=== PATIENT | male | born 1980 | race Caucasian/White ===

== ENCOUNTER 2017-03-27 19:49 | Emergency (ER) | payer BC ==
[2017-03-27 19:54] VITALS: RESP 18
[2017-03-27] MEDS ORDERED: METOCLOPRAMIDE 5 MG/ML 2 ML VIAL IVP STA (20:56)
[2017-03-27] MEDS ORDERED: PANTOPRAZOLE 40 MG/10 ML VIAL IVP STA (20:56)
[2017-03-27] MEDS ORDERED: HYDROmorphone 1 MG/ML 1 ML SYRINGE IVP STA ×2 (20:56→22:28)
[2017-03-27] MEDS ORDERED: SODIUM CHLORIDE 0.9% 1,000 ML IV STA ×2 (20:56)
--- NOTE | 2017-03-27 21:08 | ED ---
General Adult HPI - General Source: patient, family, RN notes reviewed Mode of arrival: ambulatory Limitations: no limitations <Rafiq Fonseca - Last Filed: 03/27/17 22:41> <Jean Menchaca - Last Filed: 03/28/17 01:42> - General Chief complaint: Abdominal Pain Stated complaint: Abd Pain Time Seen by Provider: 03/27/17 20:47 - History of Present Illness Initial comments: If complaint and history of present illness a 37-year-old male who reports he awakened around 3:30 with epigastric area pain. Dry heaves mild diaphoresis. Patient 20 difficult to find a position of comfort. He does report having had kidney stones in the past. As nothing ate any bad food. No one is also sick like this. (Rafiq Fonseca) - Related Data Home Medications Medication Instructions Recorded Confirmed Cyclobenzaprine [Flexeril] 5 - 10 mg PO Q6H PRN 03/27/17 03/27/17 HYDROcodone/APAP 10-325MG [[place] 1 tab PO TID PRN 03/27/17 03/27/17 10-325] Previous Rx's Medication Instructions Recorded Famotidine [Pepcid] 20 mg PO BID #14 tablet 03/28/17 Allergies Allergy/AdvReac Type Severity Reaction Status Date / Time No Known Allergies Allergy Verified 03/27/17 21:11 Review of Systems ROS Other: All systems not noted in ROS Statement are negative. <Rafiq Fonseca - Last Filed: 03/27/17 22:41> ROS Other: All systems not noted in ROS Statement are negative. <Jean Menchaca - Last Filed: 03/28/17 01:42> ROS Statement: Those systems with pertinent positive or pertinent negative responses have been documented in the HPI. Review of systems no headache or visual acuity changes no shortness of breath no chest pain. He points to the epigastric area as area discomfort and pain in the back sometimes left flank area. He's been taking pain medication at home without resolution. He had dry heaves for several hours. No neuro deficits. All systems are reviewed. Past medical processing significant for asthma, kidney stone and bone spurs in the shoulder. surgeries include knee surgery for ACL repair. Family history ulcers and colitis. Patient denies ALLERGIES nonsmoker nondrinker. (Rafiq Fonseca) Past Medical History Past Medical History: Asthma Additional Past Medical History / Comment(s): bone spurs in shoulders History of Any Multi-Drug Resistant Organisms: None Reported Past Surgical History: Orthopedic Surgery Additional Past Surgical History / Comment(s): knee Past Psychological History: No Psychological Hx Reported Smoking Status: Never smoker Past Alcohol Use History: None Reported Past Drug Use History: None Reported <Rafiq Fonseca - Last Filed: 03/27/17 22:41> General Exam Limitations: no limitations <Rafiq Fonseca - Last Filed: 03/27/17 22:41> <Jean Menchaca - Last Filed: 03/28/17 01:42> - General Exam Comments Initial Comments: General: The patient is awake and alert, moderate distress, epigastric pain mildly diaphoretic. Unable to sit still because of discomfort epigastric region and goes through to the back area and left flank area. Vital signs show temperature 97.4 pulse 88 respiratory rate 18 pulse ox 90% room air blood pressure 159/92 Eye: Pupils are equal, round and reactive to light, extra-ocular movements are intact ; there is normal conjunctiva bilaterally. No signs of icterus. Ears, nose, mouth and throat: There are moist mucous membranes and no oral lesions. Neck: The neck is supple, there is no tenderness . Cardiovascular: There is a regular rate and rhythm. No murmur, rub or gallop is appreciated. Respiratory: Lungs are clear to auscultation, respirations are non-labored, breath sounds are equal. No wheezes, stridor, rales, or rhonchi. Gastrointestinal: Patient seems to have left flank area pain that radiates around toward the front to the epigastric region. Moving around like he has kidney stone pain. Has had a history of kidney stone problems. Denies taking nonsteroidals for his chronic shoulder pain. He uses [place] instead. Back: There is no tenderness to palpation in the midline. There is no obvious deformity. No rashes noted. Left flank area discomfort Musculoskeletal: Normal ROM, no tenderness, There is no pedal edema. There is no calf tenderness or swelling. Sensation intact. Skin: Skin is warm and dry and no rashes or lesions are noted. (Rafiq Fonseca) Medical Decision Making - Lab Data Result diagrams: 03/27/17 21:10 03/27/17 21:10 <Rafiq Fonseca - Last Filed: 03/27/17 22:41> - Lab Data Result diagrams: 03/27/17 21:10 03/27/17 21:10 <Jean Menchaca - Last Filed: 03/28/17 01:42> - Medical Decision Making Medical decision making patient's white count 11.4 hemoglobin 14 hematocrit 42, pleasant lactic acid 1.4 , within normal limits. Potassium 3.8, BUN 15 creatinine 0.84 the GFR greater than 60. Glucose 112. X-ray of the abdomen was done and reviewed by radiologist his impression is small amount of retained stool is seen within the nondilated ascending colon and sigmoid colon as well as within the rectosigmoid junction containing numerous radiopaque foci for ingested sepsis. This is a nonspecific nonobstructive bowel gas pattern. No evidence organomegaly osseous structures appear intact. No suspicious calcifications are seen within the abdomen or pelvis. Impression nonobstructive bowel gas pattern. As read by Reexamination finds the patient still having pain in the epigastric region. Though slightly more comfortable. She'll be getting a GI cocktail +[address] of the abdomen and pelvis with IV and oral contrast has been ordered. Final disposition will be determined by Dr. Menchaca (Rafiq Fonseca) - Lab Data Lab Results 03/27/17 03/27/17 03/27/17 Range/Units 21:10 21:10 21:10 WBC 11.4 H (3.8-10.6) k/uL RBC 4.48 (4.30-5.90) m/uL Hgb 14.2 (13.0-17.5) gm/dL Hct 42.1 (39.0-53.0) % MCV 94.0 (80.0-100.0) fL MCH 31.7 (25.0-35.0) pg MCHC 33.8 (31.0-37.0) g/dL RDW 13.3 (11.5-15.5) % Plt Count 396 (150-450) k/uL Neutrophils % 70 % Lymphocytes % 19 % Monocytes % 5 % Eosinophils % 4 % Basophils % 1 % Neutrophils # 8.0 H (1.3-7.7) k/uL Lymphocytes # 2.2 (1.0-4.8) k/uL Monocytes # 0.6 (0-1.0) k/uL Eosinophils # 0.4 (0-0.7) k/uL Basophils # 0.1 (0-0.2) k/uL Sodium 145 (137-145) mmol/L Potassium 3.8 (3.5-5.1) mmol/L Chloride 106 (98-107) mmol/L Carbon Dioxide 26 (22-30) mmol/L Anion Gap 13 mmol/L BUN 15 (9-20) mg/dL Creatinine 0.84 (0.66-1.25) mg/dL Est GFR (MDRD) Af Amer >60 (>60 ml/min/1.73 sqM) Est GFR (MDRD) Non-Af >60 (>60 ml/min/1.73 sqM) Glucose 112 H (74-99) mg/dL Plasma Lactic Acid [place] 1.4 (0.7-2.0) mmol/L Calcium 9.8 (8.4-10.2) mg/dL Total Bilirubin 0.6 (0.2-1.3) mg/dL AST 32 (17-59) U/L ALT 55 (21-72) U/L Alkaline Phosphatase 63 (38-126) U/L Total Protein 8.6 H (6.3-8.2) g/dL Albumin 4.7 (3.5-5.0) g/dL Amylase 66 (30-110) U/L Lipase 38 (23-300) U/L Urine Color Urine Appearance (Clear) Urine pH (5.0-8.0) Ur Specific [place] (1.001-1.035) Urine Protein (Negative) Urine Glucose (UA) (Negative) Urine Ketones (Negative) Urine Blood (Negative) Urine Nitrite (Negative) Urine Bilirubin (Negative) Urine Urobilinogen (<2.0) mg/dL Ur Leukocyte Esterase (Negative) Urine RBC (0-5) /hpf Urine WBC (0-5) /hpf Urine Mucus (None) /hpf 03/27/17 Range/Units 21:20 WBC (3.8-10.6) k/uL RBC (4.30-5.90) m/uL Hgb (13.0-17.5) gm/dL Hct (39.0-53.0) % MCV (80.0-100.0) fL MCH (25.0-35.0) pg MCHC (31.0-37.0) g/dL RDW (11.5-15.5) % Plt Count (150-450) k/uL Neutrophils % % Lymphocytes % % Monocytes % % Eosinophils % % Basophils % % Neutrophils # (1.3-7.7) k/uL Lymphocytes # (1.0-4.8) k/uL Monocytes # (0-1.0) k/uL Eosinophils # (0-0.7) k/uL Basophils # (0-0.2) k/uL Sodium (137-145) mmol/L Potassium (3.5-5.1) mmol/L Chloride (98-107) mmol/L Carbon Dioxide (22-30) mmol/L Anion Gap mmol/L BUN (9-20) mg/dL Creatinine (0.66-1.25) mg/dL Est GFR (MDRD) Af Amer (>60 ml/min/1.73 sqM) Est GFR (MDRD) Non-Af (>60 ml/min/1.73 sqM) Glucose (74-99) mg/dL Plasma Lactic Acid [place] (0.7-2.0) mmol/L Calcium (8.4-10.2) mg/dL Total Bilirubin (0.2-1.3) mg/dL AST (17-59) U/L ALT (21-72) U/L Alkaline Phosphatase (38-126) U/L Total Protein (6.3-8.2) g/dL Albumin (3.5-5.0) g/dL Amylase (30-110) U/L Lipase (23-300) U/L Urine Color Yellow Urine Appearance Clear (Clear) Urine pH 5.5 (5.0-8.0) Ur Specific [place] 1.020 (1.001-1.035) Urine Protein Trace H (Negative) Urine Glucose (UA) Negative (Negative) Urine Ketones Negative (Negative) Urine Blood Trace H (Negative) Urine Nitrite Negative (Negative) Urine Bilirubin Negative (Negative) Urine Urobilinogen <2.0 (<2.0) mg/dL Ur Leukocyte Esterase Negative (Negative) Urine RBC 1 (0-5) /hpf Urine WBC 1 (0-5) /hpf Urine Mucus Rare H (None) /hpf Disposition <Rafiq Fonseca - Last Filed: 03/27/17 22:41> <Jean Menchaca - Last Filed: 03/28/17 01:42> Clinical Impression: Abdominal pain Disposition: HOME SELF-CARE Condition: Fair Instructions: Abdominal Pain (ED) Prescriptions: Famotidine [Pepcid] 20 mg PO BID #14 tablet Referrals: Rafiq Burch DO [Primary Care Provider] - 1-2 days
[2017-03-27 21:27] LABS: Basophils # (A) 0.1 k/uL (0-0.2); Basophils % (A) 1 %; CH 33.2; CHCM 35.5; Eosinophils # (A) 0.4 k/uL (0-0.7); Eosinophils % (A) 4 %; HCT 42.1 % (39.0-53.0); HDW 2.73; HGB 14.2 gm/dL (13.0-17.5); Luc # (Auto) 0.17; Luc % (Auto) 2; Lymphocytes # (A) 2.2 k/uL (1.0-4.8); Lymphocytes % (A) 19 %; MCH 31.7 pg (25.0-35.0); MCHC 33.8 g/dL (31.0-37.0); Mean Platelet Volume 7.1; Monocytes # (A) 0.6 k/uL (0-1.0); Monocytes % (A) 5 %; Neutrophils % (A) 70 %; RBC 4.48 m/uL (4.30-5.90); RDW 13.3 % (11.5-15.5); WBC 11.4 k/uL (3.8-10.6); WBC (Perox) 12.03
--- NOTE | 2017-03-27 21:42 | XR ---
EXAMINATION TYPE: XR abdomen 2V DATE OF EXAM: 03/27/2017 9:25 PM COMPARISON: NONE HISTORY: Epigastric pain and nausea TECHNIQUE: Upright and supine abdominal radiographs are obtained. FINDINGS: Small amount of retained stool is seen within the nondilated ascending colon and sigmoid co freeman as well as within the rectosigmoid junction containing numerous radiopaque foci from ingested sub stance. There is a nonspecific, nonobstructive bowel gas pattern. No evidence of organomegaly. Osseou s structures appear intact. No suspicious calcifications are seen within the abdomen or pelvis. IMPRESSION: Nonobstructive bowel gas pattern.
[2017-03-27 21:48] LABS: ALT 55 U/L (21-72); AST 32 U/L (17-59); Alkaline Phosphatase 63 U/L (38-126); Amylase 66 U/L (30-110); Anion Gap 13 mmol/L; Blood Urea Nitrogen 15 mg/dL (9-20); Calcium 9.8 mg/dL (8.4-10.2); Carbon Dioxide 26 mmol/L (22-30); Chloride 106 mmol/L (98-107); Glucose 112 mg/dL (74-99); Non-African American GFR(MDRD) >60 (>60 ml/min/1.73 sqM); Potassium 3.8 mmol/L (3.5-5.1); Sodium 145 mmol/L (137-145); Total Bilirubin 0.6 mg/dL (0.2-1.3); Total Protein 8.6 g/dL (6.3-8.2)
[2017-03-27 21:54] LABS: Appearance,Urine Clear (Clear); Bilirubin,Urine Negative (Negative); Glucose,Urine (UA) Negative (Negative); Ketones,Urine Negative (Negative); Leukocyte Esterase,Urine Negative (Negative); Mucus,Urine Rare /hpf; Nitrite,Urine Negative (Negative); PH, Urine 5.5 (5.0-8.0); Particle Count 3598; Protein,Urine Trace (Negative); RBC,Urine 1 /hpf (0-5); UA Billing (MACRO vs. MICRO) MICRO; Urobilinogen,Urine <2.0 mg/dL (<2.0); WBC,Urine 1 /hpf (0-5)
[2017-03-27] MEDS ORDERED: ONDANSETRON ODT 4 MG TAB PO STA (22:29)
[2017-03-27] MEDS ORDERED: MAG HYDROX/AL HYDROX/SIMETH 30 ML, HYOSCYAMINE ELIXIR 10 ML, CIMETIDINE HCL 300 MG, LID... PO STA ×4 (22:29)
[2017-03-27] MEDS ORDERED: RX INFO: IV CONTRAST WAS GIVEN 1 EACH MISC MISCELLANE PRN (22:30)
[2017-03-27] MEDS ORDERED: IOHEXOL 350 MG/ML 25 ML BOTTLE (ORAL USE) PO PRN (22:30)
--- NOTE | 2017-03-28 01:34 | CT ---
EXAM: CT Abdomen and Pelvis With Intravenous Contrast CLINICAL HISTORY: Reason: Epigastric pain TECHNIQUE: Axial computed tomography images of the abdomen and pelvis with intravenous contrast. CTDI is mGy and DLP is mGy-cm This CT exam was performed using one or more of the following dose reduction techniques: automated exposure control, adjustment of the mA and/or kV according to patient size, and/or use of iterative reconstruction technique. Coronal and sagittal reconstructions are performed COMPARISON: No relevant prior studies available. FINDINGS: Lower thorax: No acute findings. ABDOMEN: Liver: Fatty liver. Gallbladder and bile ducts: Unremarkable. No calcified stones. No ductal dilation. Pancreas: Unremarkable. No mass. No ductal dilation. Spleen: Unremarkable. No splenomegaly. Adrenals: Unremarkable. No mass. Kidneys and ureters: Unremarkable. No solid mass. No hydronephrosis. Stomach and bowel: Mild colonic diverticulosis. Mild dilatation of proximal jejunum to 4 cm without wall thickening, may suggest focal ileus. Oral contrast did not reach the ileum. Appendix: Normal-appearing appendix. PELVIS: Bladder: Unremarkable. No mass. Reproductive: Unremarkable as visualized. ABDOMEN and PELVIS: Intraperitoneal space: Unremarkable. No free air. No significant fluid collection. Bones/joints: No acute fracture. No dislocation. Soft tissues: Unremarkable. Vasculature: Unremarkable. No abdominal aortic aneurysm. Lymph nodes: Unremarkable. No enlarged lymph nodes. IMPRESSION: 1. No acute findings. 2. Mild colonic diverticulosis
[2017-03-28 02:19] VITALS: BP 133/77; PULSE 66; TEMP 98
== END 2017-03-28 02:20 | disposition home or self-care (01) ==
LOC: EC 19:49
DX: R10.13 Epigastric pain (principal); R61 Generalized hyperhidrosis; M54.9 Dorsalgia, unspecified
CPT/HCPCS: 36415; 80053; 82150; 83605; 83690; 85025; 81001; 87040; 87086; 74020; 74177; 99284; 96374; 96376; 96375 ×2; 96361 ×5; J2765; J1170 ×2; Q9967; C9113

== ENCOUNTER → 2024-11-14 | Outpatient (CLI) | payer BC ==
[2024-11-14 15:45] VITALS: BP 113/79; PULSE 90; RESP 16; TEMP 97.9
--- NOTE | 2024-11-14 16:15 | P.SLEEP ---
History of Present Illness DATE: 11/14/2024 CONSULTATION/NEW PATIENT EVALUATION HISTORY OF PRESENT ILLNESS/SLEEP-WAKE EVALUATION: 44-year-old gentleman had been evaluated in the sleep center for possible obstructive sleep apnea hypopnea syndrome. Patient has history of obstructive sleep apnea documented about 15 years ago in another institution. He was started on treatment with CPAP, but did not use it for the long time. SLEEP SCHEDULE: Usually sleep schedule from 1011 PM to 5 AM on weekdays and from 1112 until 5 AM on weekend. FALLING ASLEEP: Patient does have problems with falling asleep. DURING SLEEP: Patient has loud snoring, episodes of stop breathing during the sleep, wakes up from sleep multiple times is up to 2 episodes of nocturia, positive history of grinding teeth, dry mouth, sweating. No history of hypnogogical hallucinations, sleep paralysis, or cataplexy. DURING THE DAY/WAKE STATE: In the morning patient wake up tired, has episodes of irritability and depression. [place] sleepiness scale is increased to 10. Usually patient does not take naps. PAST MEDICAL HISTORY: Asthma of exercise, back problems. PAST SURGICAL HISTORY:, Surgical treatment for right ACL problems. MEDICATIONS: Please see below. SOCIAL HISTORY: Please see below. FAMILY HISTORY: Please see below. REVIEW OF SYSTEMS: Loud snoring, multiple awakenings from sleep, sleepiness during the day. No fevers. No double vision. No recent chest pain. No shortness of breath. No abdominal pain. No bleeding episodes. No blood in urine. No seizure episodes. PHYSICAL EXAMINATION: GENERAL: A pleasant patient without any distress. VITAL SIGNS: Please see below weight 298 pounds, BMI 40.1. HEENT: PERRLA, EOMI. Evaluation of oropharynx showed tongue protrudes midline, low position of soft palate Mallampati 4. NECK: Supple. No JVD. Thyroid is not palpable. 17.5 inches in circumference. LUNGS: Clear to percussion and to auscultation. Good air exchange. No wheezing or rhonchi. HEART: S1, S2 regular. No murmurs, gallops or rubs. ABDOMEN: Soft and nontender. Bowel sounds are present. No organomegaly appreciated. EXTREMITIES: No clubbing or cyanosis. 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 Cranial nerves 2 to 7 intact. There is no fasciculation or atrophy noted. No focal deficits observed. ASSESSMENT: 1. Loud snoring, witnessed episodes of stop breathing during the sleep, extremely low position of soft palate Mallampati 4, wide neck 17.5 inches in circumference, sleepiness with [place] Sleepiness Scale 10, history of obstructive sleep apnea in the past. Obstructive sleep apnea hypopnea syndrome. 2. Obesity, BMI 40.1. 3. Asthma of exercise. 4. Back problems. 5 status post surgical treatment for right ACL. PLAN: 1. Polysomnography for evaluation of patient's breathing during sleep. 2. Following plan after reading sleep study. 3. Preferable position during sleep on the side. 4. No driving if patient feels any sleepiness. Patient is aware of civil and criminal liability for unsafe driving. 5. Sleep hygiene with regular sleep time for at least 7.5-8 hours. 6. Watching and losing weight. Thank you very much for referring this patient for consultation. Sincerely, Jorge Darby MD, PhD, FAASM. Diplomat of [place] [employer], Sleep Medicine Board by [place] [employer] [place] [employer] Database Analyst [facility] [place] cc: Rafiq Burch DO Past Medical History Past Medical History: Asthma, Sleep Apnea/CPAP/BIPAP Additional Past Medical History / Comment(s): bone spurs in shoulders History of Any Multi-Drug Resistant Organisms: None Reported Past Surgical History: Orthopedic Surgery Additional Past Surgical History / Comment(s): knee Past Psychological History: No Psychological Hx Reported Smoking Status: Never smoker Past Alcohol Use History: Occasional Past Drug Use History: None Reported - Past Family History Mother Family Medical History: Cancer, Coronary Artery Disease (CAD) Father Family Medical History: Dialysis, GERD/Reflux, Hyperlipidemia, Hypertension, Rheumatoid Arthritis (RA), Sleep Apnea/CPAP/BIPAP Additional Family Medical History / Comment(s): snoring, rsstless legs Medications and Allergies Home Medications Medication Instructions Recorded Confirmed Type Cyclobenzaprine [Flexeril] 5 - 10 mg PO Q6H PRN 03/27/17 11/14/24 History HYDROcodone/APAP 10-325MG [[place] 1 tab PO TID PRN 03/27/17 03/27/17 History 10-325] Famotidine [Pepcid] 20 mg PO BID #14 tablet 03/28/17 Rx Allergies Allergy/AdvReac Type Severity Reaction Status Date / Time No Known Allergies Allergy Verified 12/02/21 14:52 Physical Exam Vitals: Vital Signs Temp Pulse Resp BP Pulse Ox 11/14/24 15:43 97.9 F 90 16 113/79 97 Intake and Output 11/14/24 11/14/24 11/14/24 06:59 14:59 22:59 Other: Weight 135.171 kg Sleep Note - Sleep Data ESS Total: 10 - Sleep Note Sleep Note: Temperature: 97.9 F Pulse Rate: 90 Respiratory Rate: 16 Blood Pressure: 113/79 SpO2: 97 Height: 6 ft 0.2 in Weight: 135.171 kg BMI: Neck Circumference: 17.5
== END ==
LOC: 3 N SLEEP 14:50
PROVIDERS: ATTEND Internal Medicine
DX: G47.33 Obstructive sleep apnea (adult) (pediatric) (principal); G47.10 Hypersomnia, unspecified; E66.9 Obesity, unspecified; J45.909 Unspecified asthma, uncomplicated; M53.9 Dorsopathy, unspecified; Z98.890 Other specified postprocedural states; Z68.41 Body mass index [BMI] 40.0-44.9, adult
CPT/HCPCS: 99211

== ENCOUNTER → 2025-01-25 | Outpatient (CLI) | payer BC ==
--- NOTE | 2025-01-26 13:45 | P.PCN ---
Description of Procedure: CLINICAL: A home sleep apnea test has been done for confirmation of possible obstructive sleep apnea-hypopnea syndrome. DESCRIPTION OF PROCEDURE: RESULTS: Recording time was 7 hours 42 minutes. Evaluation time was 7 hours 30 minutes. Evaluation time is sufficient for making conclusion about results of the test. Raw data of sleep recording has been reviewed and is adequate. Respiratory channel showed 4 apneas and 165 hypopneas. Apnea-hypopnea index was 22.5 per hour. Pulse rate in the range between minimum 73, maximum 123, average 91 by computer calculation. Lowest desaturation was 82%. IMPRESSION: 1. Obstructive Sleep Apnea Hypopnea Syndrome in moderate range. Please see other impressions from consultation. PLAN: 1. The patient will be started on auto-PAP treatment for correction of respiratory abnormallities during sleep. 2. I will see patient for follow up visit to discuss results of the test, evaluate clinical response on treatment with PAP therapy and make any necessary adjustments related to mask fitting, pressure, and humidification. 3. Watching weight. 4. Sleep hygiene with regular time in bed for at least 8 hours. 5. No driving if feeling any sleepiness. Thank you very much for allowing me to participate in the management of your patient. Sincerely, Jorge Darby MD, PhD, FAASM Diplomat of [place] [employer] Sleep Medicine Board of [place] [employer] Medicine Wire Temperer [facility] [place] cc: Rafiq Burch DO
== END ==
LOC: 3 N SLEEP 16:55
PROVIDERS: ATTEND Internal Medicine
DX: G47.33 Obstructive sleep apnea (adult) (pediatric) (principal)

== ENCOUNTER → 2025-05-24 | Outpatient (CLI) | payer BC ==
[2025-05-24 16:19] VITALS: BP 121/79; PULSE 90; RESP 16; TEMP 97.8
--- NOTE | 2025-05-24 18:27 | P.PROGSL ---
Subjective DATE: 05/24/2025 FOLLOW UP VISIT. Patient with obstructive sleep apnea hypopnea syndrome return to sleep center for follow-up visit. Recently patient had sleep study which documented obstructive sleep apnea hypopnea syndrome. Patient was initiated on PAP therapy and today is first visit after treatment was started. Patient was able to use PAP equipment every night for the whole night. The patient does not have significant problems with the mask, PAP pressure and humidification. [place] sleepiness scale is 8, which is in normal range. I checked information from PAP unit. PAP unit pressure 5-15, average 8.3 cm H2O. Usage is 90% and 83% for more then 4 hours, average 6.75 hours per night. Leak is 36.9 l/m, which is in increased range. Apnea Hypopnea Index is 1.1, which is normal. MEDICATIONS: Please see below During physical exam: GENERAL: A pleasant patient without any distress. VITAL SIGNS: Please see below, weight 298.2 pounds. HEENT: PERRLA, EOMI.low position of soft palate, Mallapati 4 . NECK: Supple. No JVD. LUNGS: Clear to percussion and to auscultation. Good air exchange. No wheezing or rhonchi. HEART: S1, S2 regular. ABDOMEN: Soft and nontender.[] EXTREMITIES: No clubbing or cyanosis. 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 No focal deficit. Impressions: 1. Obstructive sleep apnea-hypopnea syndrome. Patient demonstrated great compliance with treatment, benefiting from treatment. 2. Obesity. 3. Asthma for exercise. 4. History of back problems. 5. Status post surgical treatment for ACL on the right side. Plan: 1. Continue using PAP equipment every night for the whole night. 2. To change air filter at least 1-2 times per month. 3. PAP unit should stay lower then position of the head. 4. Advised patient to remove all remaining water from humidifier canister daily and make it dry after each usage. Refill canister with fresh distilled water before each usage. 5. Sleep hygiene with regular time in bed for at least 8 hours. 6. Precautions related to driving. No driving if feel any sleepiness. 7. I will maintain prescription for PAP supplies including mask, tube, filters. 8. Follow up visit in 6 months or earlier if patient has any problems. 9. Watching weight. Thank you very much for allowing me to participate in the management of your patient. Jorge Darby MD, PhD, FAASM. Diplomat of [place] Board of Sleep Medicine, Sleep Medicine Board by [place] Board of Internal Medicine [employer] [facility] [place] Objective - Vital Signs Vital Signs: Vital Signs Temp 97.8 F 05/24/25 16:18 Pulse 90 05/24/25 16:18 Resp 16 05/24/25 16:18 BP 121/79 05/24/25 16:18 Pulse Ox 97 05/24/25 16:18 FiO2 Intake & Output 05/23/25 05/24/25 05/24/25 18:59 06:59 18:59 Weight 135.227 kg Home Medications: Home Medications Medication Instructions Recorded Confirmed Type Cyclobenzaprine [Flexeril] 5 - 10 mg PO Q6H PRN 03/27/17 11/14/24 History HYDROcodone/APAP 10-325MG [[place] 1 tab PO TID PRN 03/27/17 03/27/17 History 10-325] Famotidine [Pepcid] 20 mg PO BID #14 tablet 03/28/17 Rx
== END ==
LOC: 3 N SLEEP 15:54
PROVIDERS: ATTEND Internal Medicine
DX: G47.33 Obstructive sleep apnea (adult) (pediatric) (principal); E66.9 Obesity, unspecified; J45.909 Unspecified asthma, uncomplicated; Z87.39 Personal history of other diseases of the musculoskeletal system and connective tissue; Z98.890 Other specified postprocedural states; Z99.89 Dependence on other enabling machines and devices
CPT/HCPCS: 99212